=== PATIENT | female | born 1990 | race Caucasian/White ===

== ENCOUNTER 2022-12-23 19:01 | Emergency (ER) | payer OTHER ==
[~2022-12-23] VITALS: Ht 175.3 cm; Wt 108.9 kg
[2022-12-23] MEDS ORDERED: birth control PO (20:36)
--- NOTE | 2022-12-23 20:36 | NUR ---
After being triaged, patient was placed back in the waiting room due to no beds available in the ER at this time.
--- NOTE | 2022-12-23 22:10 | NUR ---
Patient placed in room 2B at this time.
[2022-12-23] MEDS ORDERED: ASPIRIN 81 MG TAB.CHEW PO ONE (22:45)
[2022-12-23] MEDS ORDERED: ASPIRIN 81 MG TAB.CHEW ONE (22:51)
[2022-12-23 23:01] LABS: HEMATOCRIT 39.6 % (31.2-41.9); MEAN CORPUSCULAR HEMOGLOBIN 29.5 uug (24.7-32.8); MEAN CORPUSCULAR VOLUME 87.6 fL (75.5-95.3); PLATELET COUNT (AUTO) 249 K/uL (179-408)
[2022-12-23 23:11] LABS: CARBON DIOXIDE 26 mmol/L (21-32); CHLORIDE 104 mmol/L (98-107); GLUCOSE 87 mg/dL (74-106); POTASSIUM 3.9 mmol/L (3.5-5.1); UREA NITROGEN, BLOOD 8 mg/dL (7-18)
[2022-12-23 23:24] LABS: ALANINE AMINOTRANSFERASE 23 U/L (14-59); ALKALINE PHOSPHATASE 63 U/L (50-136); ASPARTATE AMINOTRANSFERASE 12 U/L (15-37); BILIRUBIN,DIRECT < 0.1 mg/dL (0.0-0.2); BILIRUBIN,TOTAL 0.4 mg/dL (0.2-1.0); TOTAL PROTEIN, SERUM 7.6 g/dL (6.4-8.2)
--- NOTE | 2022-12-23 23:50 | NUR ---
PT A,A AND O X 4 WITH NO CP AND NO SOB, VSS. Patient discharged to home in stable condition. Written and verbal after care instructions given. Patient verbalizes understanding of instructions. Stressed follow up or return to ER for worsening s/s.
[2022-12-23 23:52] VITALS: BP 137/75
== END 2022-12-23 23:50 | disposition home or self-care (01) ==
LOC: ER 19:08
DX: R07.89 Other chest pain (principal); R06.00 Dyspnea, unspecified
CPT/HCPCS: 36415; 71045; 84484; 85025; 93005; A4663